=== PATIENT | male | born 1970 | race Caucasian/White ===

== ENCOUNTER 2018-01-15 01:51 | Observation (INO) ==
--- NOTE | 2018-01-15 03:42 | ED ---
HPI General Chief Complaint: Psychiatric Symptoms Stated Complaint: [facility] Transport/ Psych Eval Time Seen by Provider: 01/15/18 03:14 Source: patient Mode of arrival: ambulatory Limitations: other (TBI) History of Present Illness HPI Narrative: 47-year-old male presents to the emergency department with medical records records from [facility] for evaluation of medical clearance after Gleason act. Patient has traumatic brain injury and resident of local [facility] became aggressive towards patients and staff and was sent to [facility] for further evaluation and management upon patient's arrival to the facility was identified to need medical clearance and was sent to the emergency room for further evaluation. Patient is able to provide helpful or useful history due to history of traumatic brain injury. complaint: feels depressed Onset (ago): unknown Duration: other (Unknown) Relieving factors: other (unknown) Exacerbating factors: other (unknown) Associated symptoms: denies other symptoms Treatments prior to arrival: none and other (gleason act by [facility]) Details of plan: reportedly aggressive towards other [facility] residence and medical staff Related Data Home Medications Medication Instructions Recorded Confirmed atorvastatin 20 mg PO DAILY 01/15/18 01/15/18 divalproex 500 mg PO TID 01/15/18 01/15/18 docusate sodium [Colace] 100 mg PO DAILY 01/15/18 01/15/18 mirabegron [Myrbetriq] 25 mg PO DAILY 01/15/18 01/15/18 omeprazole 20 mg PO DAILY 01/15/18 01/15/18 polyethylene glycol 3350 17 g PO DAILY 01/15/18 01/15/18 quetiapine 300 mg PO BID 01/15/18 01/15/18 tamsulosin 0.4 mg PO DAILY 01/15/18 01/15/18 ziprasidone HCl [Geodon] 80 mg PO QPM 01/15/18 01/15/18 Allergies Allergy/AdvReac Type Severity Reaction Status Date / Time No Known Allergies Allergy Unverified 01/15/18 02:12 Review of Systems ROS Unobtainable ROS Unobtainable: unobtainable due to mental condition PMFSH Medical History Medical History Mood disorder (Acute) Schizophrenia (Acute) Seizure (Acute) Social History Social History Substance History: No History of Abuse Smoking Status: Never smoker How Often Do You Have a Drink Containing Alcohol: Never Recent Out of Country Travel within the Last 8 Weeks: No Immunization History Tetanus Immunization: Unsure Exam Narrative Exam Narrative: GENERAL: Well-nourished, well-developed patient. SKIN: Focused skin assessment warm/dry. HEAD: Normocephalic. EYES: No scleral icterus. No injection or drainage. NECK: Supple, trachea midline. No JVD or lymphadenopathy. CARDIOVASCULAR: Regular rate and rhythm without murmurs, gallops, or rubs. RESPIRATORY: Breath sounds equal bilaterally. No accessory muscle use. GASTROINTESTINAL: Abdomen soft, non-tender, nondistended. MUSCULOSKELETAL: No cyanosis, or edema. BACK: Nontender without obvious deformity. No CVA tenderness. Course Initial Documented Vital Signs Temperature 98.6 F 01/15/18 02:12 Pulse Rate 98 H 01/15/18 02:12 Respiratory Rate 16 01/15/18 02:12 Blood Pressure 126/78 01/15/18 02:12 Pulse Oximetry 98 01/15/18 02:12 Last Documented Vital Signs Temperature 98.6 F 01/15/18 02:12 Pulse Rate 89 01/15/18 05:00 Respiratory Rate 18 01/15/18 02:14 Blood Pressure 126/78 01/15/18 05:00 Pulse Oximetry 98 01/15/18 05:00 Medical Decision Making MDM Narrative Medical decision making narrative: Patient with history of mood disorder or schizophrenia presents to the emergency department from [facility] for medical clearance as she has been Gleason acted due to reportedly aggressive behavior towards his previous [facility] co-residents and staff. At 5:43 AM patient's valproic acid level reported as 122; Depakote toxicity; patient also noted to have elevated TSH and serum ammonia level; no history of cirrhosis or thyroid dysfunction per medical history or her medications, patient given one-time dose of lactulose and will require further thyroid evaluation; call placed to [facility] service for OBS admission Medical Screen Exam Complete: Yes Emergency Medical Condition: Yes Differential Diagnosis Differential Diagnosis: Depression suicidal ideation thyroid dysfunction electrode disturbance metabolic encephalopathy Lab Data Result diagrams: 01/15/18 03:36 01/15/18 03:36 Lab Results 08/26/18 08/26/18 08/26/18 Range/Units 03:36 03:36 03:36 WBC 5.4 (4.0-11.0) th/mm3 RBC 4.40 L (4.50-5.90) mil/mm3 Hgb 14.7 (13.0-17.0) gm/dL Hct 42.8 (39.0-51.0) % MCV 97.3 (80.0-100.0) fL MCH 33.4 (27.0-34.0) pg MCHC 34.3 (32.0-36.0) % RDW 14.1 (11.6-17.2) % Plt Count 139 L (150-450) th/mm3 MPV 8.9 (7.0-11.0) fL Neut % (Auto) 49.3 (16.0-70.0) % Lymph % (Auto) 37.7 (9.0-44.0) % [place] % (Auto) 11.6 H (0.0-8.0) % Eos % (Auto) 1.1 (0.0-4.0) % Baso % (Auto) 0.3 (0.0-2.0) % Neut # (Auto) 2.7 (1.8-7.7) th/mm3 Lymph # (Auto) 2.0 (1.0-4.8) th/mm3 [place] # (Auto) 0.6 (0.0-0.9) th/mm3 Eos # (Auto) 0.1 (0.0-0.4) th/mm3 Baso # (Auto) 0.0 (0.0-0.2) th/mm3 WBC Differential . Differential Comment Auto diff final Sodium 144 (136-145) meq/L Potassium 4.1 (3.5-5.1) meq/L Chloride 108 H (98-107) meq/L Carbon Dioxide 23.9 (21.0-32.0) meq/L Anion Gap 12 (5-15) meq/L BUN 19 H (7-18) mg/dL Creatinine 0.80 (0.60-1.30) mg/dL Estimated GFR Greater than 89 (>89) mL/min Random Glucose 74 (74-106) mg/dL Calcium 8.8 (8.5-10.1) mg/dL Total Bilirubin 0.7 (0.2-1.0) mg/dL AST 32 (15-37) U/L ALT 25 (12-78) U/L Alkaline Phosphatase 49 (45-117) U/L Total Protein 7.3 (6.4-8.2) g/dL Albumin 3.4 (3.4-5.0) g/dL TSH 7.150 H (0.358-3.740) uIU/mL Salicylates Less than 1.7 L (2.8-20.0) mg/dL Urine Opiates Screen (Neg) Acetaminophen Less than 2.0 L (10.0-30.0) mcg/mL Ur Barbiturates Screen (Neg) Valproic Acid 122 H* (50-100) mcg/mL Ur Amphetamines Screen (Neg) U Benzodiazepines Scrn (Neg) Urine Cocaine Screen (Neg) U Cannabinoids Screen (Neg) Serum Alcohol Less than 3 (0-5) mg/dL 01/15/18 Range/Units 04:00 WBC (4.0-11.0) th/mm3 RBC (4.50-5.90) mil/mm3 Hgb (13.0-17.0) gm/dL Hct (39.0-51.0) % MCV (80.0-100.0) fL MCH (27.0-34.0) pg MCHC (32.0-36.0) % RDW (11.6-17.2) % Plt Count (150-450) th/mm3 MPV (7.0-11.0) fL Neut % (Auto) (16.0-70.0) % Lymph % (Auto) (9.0-44.0) % [place] % (Auto) (0.0-8.0) % Eos % (Auto) (0.0-4.0) % Baso % (Auto) (0.0-2.0) % Neut # (Auto) (1.8-7.7) th/mm3 Lymph # (Auto) (1.0-4.8) th/mm3 [place] # (Auto) (0.0-0.9) th/mm3 Eos # (Auto) (0.0-0.4) th/mm3 Baso # (Auto) (0.0-0.2) th/mm3 WBC Differential Differential Comment Sodium (136-145) meq/L Potassium (3.5-5.1) meq/L Chloride (98-107) meq/L Carbon Dioxide (21.0-32.0) meq/L Anion Gap (5-15) meq/L BUN (7-18) mg/dL Creatinine (0.60-1.30) mg/dL Estimated GFR (>89) mL/min Random Glucose (74-106) mg/dL Calcium (8.5-10.1) mg/dL Total Bilirubin (0.2-1.0) mg/dL AST (15-37) U/L ALT (12-78) U/L Alkaline Phosphatase (45-117) U/L Total Protein (6.4-8.2) g/dL Albumin (3.4-5.0) g/dL TSH (0.358-3.740) uIU/mL Salicylates (2.8-20.0) mg/dL Urine Opiates Screen Neg (Neg) Acetaminophen (10.0-30.0) mcg/mL Ur Barbiturates Screen Neg (Neg) Valproic Acid (50-100) mcg/mL Ur Amphetamines Screen Neg (Neg) U Benzodiazepines Scrn Neg (Neg) Urine Cocaine Screen Neg (Neg) U Cannabinoids Screen Neg (Neg) Serum Alcohol (0-5) mg/dL Discharge Plan Discharge Disposition Patient Disposition: 30 Still Patient Discharge Condition Condition: Stable Discharge Details Diagnosis: Valproic acid toxicity Physicians Team ED Provider: Joanne Chow Primary Care Provider: Kris Vincent Rxs /Orders / Referrals /Forms Prescriptions: No Action atorvastatin 20 mg Tablet 20 mg PO DAILY RF: 0 quetiapine 300 mg Tablet 300 mg PO BID RF: 0 polyethylene glycol 3350 17 gram Powder In Packet 17 g PO DAILY RF: 0 divalproex 500 mg Tablet,Delayed Release (Dr/Ec) 500 mg PO TID RF: 0 tamsulosin 0.4 mg Capsule,Extended Release 24hr 0.4 mg PO DAILY RF: 0 docusate sodium [Colace] 100 mg Capsule 100 mg PO DAILY RF: 0 omeprazole 20 mg Capsule,Delayed Release(Dr/Ec) 20 mg PO DAILY RF: 0 mirabegron [Myrbetriq] 25 mg Tablet Extended Release 24 Hr 25 mg PO DAILY RF: 0 ziprasidone HCl [Geodon] 80 mg Capsule 80 mg PO QPM RF: 0 Status ED Status: With Doctor
[2018-01-15 04:36] LABS: Baso % (Auto) 0.3 % (0.0-2.0); Eos # (Auto) 0.1 th/mm3 (0.0-0.4); Eos % (Auto) 1.1 % (0.0-4.0); Hematocrit 42.8 % (39.0-51.0); Hemoglobin 14.7 gm/dL (13.0-17.0); Lymph % (Auto) 37.7 % (9.0-44.0); Mean Corpuscular HGB Conc 34.3 % (32.0-36.0); Mean Corpuscular Hemoglobin 33.4 pg (27.0-34.0); Mean Corpuscular Volume 97.3 fL (80.0-100.0); Mean Platelet Volume 8.9 fL (7.0-11.0); Mono # (Auto) 0.6 th/mm3 (0.0-0.9); Mono % (Auto) 11.6 % (0.0-8.0); Neut # (Auto) 2.7 th/mm3 (1.8-7.7); Neut % (Auto) 49.3 % (16.0-70.0); Platelet Count 139 th/mm3 (150-450); Red Cell Distribution Width 14.1 % (11.6-17.2); White Blood Count 5.4 th/mm3 (4.0-11.0)
[2018-01-15 04:44] LABS: Amphetamine Screen,Urine Neg (Neg); Barbiturate Screen,Urine Neg (Neg); Cannabinoid Screen,Urine Neg (Neg); Cocaine Screen,Urine Neg (Neg)
[2018-01-15 04:50] LABS: Opiate Screen,Urine Neg (Neg)
[2018-01-15 05:38] LABS: Sodium 144 meq/L (136-145)
[2018-01-15 05:39] LABS: Alanine Aminotransferase 25 U/L (12-78); Anion Gap 12 meq/L (5-15); Aspartate Aminotransferase 32 U/L (15-37); Blood Urea Nitrogen 19 mg/dL (7-18); Calcium 8.8 mg/dL (8.5-10.1); Carbon Dioxide 23.9 meq/L (21.0-32.0); Chloride 108 meq/L (98-107); Glomerular Filtration Rate Greater Than 89 mL/min (>89); Glucose,Random 74 mg/dL (74-106); Potassium 4.1 meq/L (3.5-5.1)
[2018-01-15 05:40] LABS: Albumin 3.4 g/dL (3.4-5.0); Alkaline Phosphatase 49 U/L (45-117); Total Protein 7.3 g/dL (6.4-8.2)
[2018-01-15 05:42] LABS: Valproic Acid 122 mcg/mL (50-100)
[2018-01-15] MEDS ORDERED: Bisacodyl 10 MG Supp RECTAL PRN (06:01)
[2018-01-15] MEDS ORDERED: Acetaminophen 325 MG Tablet PO PRN (06:01)
[2018-01-15] MEDS ORDERED: Sod Chloride 0.9% Inj 1,000 ML IV.CONT SCH (06:15)
--- NOTE | 2018-01-15 07:38 | P.HP ---
History of Present Illness Service: [facility] Primary Care Physician: Kris Vincent Chief Complaint: Sent here from facility for aggressive behavior History of Present Illness: Patient is a 47-year-old male with history of traumatic brain injury who came from a longterm who was sent here apparently for aggressive behavior. Patient on exam is very cooperative oriented 3. Patient expressed that "I want to speak to a psychiatrist. I do not want to go back where I used to leave , they did not treat me right. When asked why she where he came from he said it is facility is [facility] in [place]. Patient currently denies any headache nausea vomiting. Patient denies any fever chills no urinary symptoms no no headache nausea or vomiting. Since admission no aggressive or bizarre behavior. Case management consulted for placement. Patient states that he ambulates independently. Review of Systems Denies any fever chills headache No nausea no vomiting, no abdominal pain Denies any urinary symptoms Denies hearing any voices PMFSH - History History Provided By: Patient - Medical History Medical History: Medical History (Last Reviewed 01/16/18 @ 07:43 by Chandana Schumacher) Mood disorder Schizophrenia Seizure - Tobacco History Smoking Status: Never smoker - Alcohol History How Often Do You Have a Drink Containing Alcohol: Never - Substance Use History Substance History: No History of Abuse - Travel History Recent Travel Out of the Country Within the Last 8 Weeks: No - Immunization History Tetanus Immunization: Unsure Medications and Allergies Active Medications: Active Medications Acetaminophen (Tylenol) 650 mg PO Q4H PRN PRN Reason: Temp > 100.4 Al Hydroxide/Mg Hydroxide (Milk Of Magnesia Liq) 30 ml PO Q12H PRN PRN Reason: Mild Constipation Bisacodyl (Dulcolax Supp) 10 mg RECTAL DAILY PRN PRN Reason: SEVERE CONSITIPATION Sodium Chloride (Ns Inj) 1,000 mls @ 100 mls/hr IV.CONT .Q10H BLUE Last Admin: 01/15/18 06:16 Dose: 100 mls/hr Lactulose (Lactulose Liq) 30 ml PO DAILY PRN PRN Reason: SEVERE CONSITIPATION Ondansetron HCl (Zofran Inj) 4 mg IV.PUSH Q6H PRN PRN Reason: NAUSEA OR VOMITING Pantoprazole Sodium (Protonix) 20 mg PO DAILY [facility] Quetiapine Fumarate (Seroquel) 300 mg PO BID [facility] Senna/Docusate Sodium (Doreen-Colace) 1 tab PO BID [facility] Sennosides (Senokot) 17.2 mg PO Q12H PRN PRN Reason: Moderate Constipation Tamsulosin HCl (Flomax) 0.4 mg PO DAILY [facility] Tolterodine Tartrate (Detrol La) 2 mg PO DAILY [facility] Ziprasidone (Geodon) 80 mg PO QPM [facility] Allergies Allergy/AdvReac Type Severity Reaction Status Date / Time No Known Allergies Allergy Unverified 01/15/18 02:12 Home Medications Medication Instructions Recorded Confirmed Type atorvastatin 20 mg PO DAILY 01/15/18 01/15/18 History divalproex 500 mg PO TID 01/15/18 01/15/18 History docusate sodium [Colace] 100 mg PO DAILY 01/15/18 01/15/18 History mirabegron [Myrbetriq] 25 mg PO DAILY 01/15/18 01/15/18 History omeprazole 20 mg PO DAILY 01/15/18 01/15/18 History polyethylene glycol 3350 17 g PO DAILY 01/15/18 01/15/18 History quetiapine 300 mg PO BID 01/15/18 01/15/18 History tamsulosin 0.4 mg PO DAILY 01/15/18 01/15/18 History ziprasidone HCl [Geodon] 80 mg PO QPM 01/15/18 01/15/18 History Exam Vital signs: Vital Signs 01/15/18 02:12 01/15/18 02:14 01/15/18 03:14 Temperature 98.6 F Pulse Rate 98 H 88 Respiratory Rate 16 18 Blood Pressure 126/78 126/76 Pulse Oximetry 98 98 01/15/18 04:00 01/15/18 05:00 01/15/18 06:00 Temperature Pulse Rate 89 82 Respiratory Rate 19 Blood Pressure 126/78 126/72 Pulse Oximetry 98 98 Intake & Output 01/14/18 01/15/18 01/15/18 18:59 06:59 18:59 Weight 90.718 kg Narrative: Patient is awake alert oriented to person place and year pleasant and cooperative speech clear Childlike Blood pressure 122/70 heart rate of 92 sinus temperature afebrile HEENT exam anicteric sclerae pink palpebral conjunctivae Moist oral mucosa Neck supple no nuchal rigidity Chest lungs bilateral breath sounds equal no rales no wheezes heart regular rhythm Abdomen is soft good bowel sounds Extremities no edema Moves all extremities spontaneously Results - Labs CBC & Chem 7: 01/16/18 06:00 01/16/18 06:00 Labs: Laboratory Results - last 24 hr 01/15/18 01/15/18 01/15/18 03:36 03:36 03:36 WBC 5.4 RBC 4.40 L Hgb 14.7 Hct 42.8 MCV 97.3 MCH 33.4 MCHC 34.3 RDW 14.1 Plt Count 139 L MPV 8.9 Neut % (Auto) 49.3 Lymph % (Auto) 37.7 [place] % (Auto) 11.6 H Eos % (Auto) 1.1 Baso % (Auto) 0.3 Neut # (Auto) 2.7 Lymph # (Auto) 2.0 [place] # (Auto) 0.6 Eos # (Auto) 0.1 Baso # (Auto) 0.0 WBC Differential . Differential Comment Auto diff final Sodium 144 Potassium 4.1 Chloride 108 H Carbon Dioxide 23.9 Anion Gap 12 BUN 19 H Creatinine 0.80 Estimated GFR Greater than 89 Random Glucose 74 Calcium 8.8 Total Bilirubin 0.7 AST 32 ALT 25 Alkaline Phosphatase 49 Total Protein 7.3 Albumin 3.4 TSH 7.150 H Salicylates Less than 1.7 L Urine Opiates Screen Acetaminophen Less than 2.0 L Ur Barbiturates Screen Valproic Acid 122 H* Ur Amphetamines Screen U Benzodiazepines Scrn Urine Cocaine Screen U Cannabinoids Screen Serum Alcohol Less than 3 01/15/18 04:00 WBC RBC Hgb Hct MCV MCH MCHC RDW Plt Count MPV Neut % (Auto) Lymph % (Auto) [place] % (Auto) Eos % (Auto) Baso % (Auto) Neut # (Auto) Lymph # (Auto) [place] # (Auto) Eos # (Auto) Baso # (Auto) WBC Differential Differential Comment Sodium Potassium Chloride Carbon Dioxide Anion Gap BUN Creatinine Estimated GFR Random Glucose Calcium Total Bilirubin AST ALT Alkaline Phosphatase Total Protein Albumin TSH Salicylates Urine Opiates Screen Neg Acetaminophen Ur Barbiturates Screen Neg Valproic Acid Ur Amphetamines Screen Neg U Benzodiazepines Scrn Neg Urine Cocaine Screen Neg U Cannabinoids Screen Neg Serum Alcohol Caprini VTE Risk Assessment Caprini VTE Risk Assessment: No/Low Risk (score <= 1) Caprini Risk Assessment Model: Point Value = 1 Point Value = 2 Point Value = 3 Point Value = 5 Age 41-60 Minor surgery BMI > 25 kg/m2 Swollen legs Varicose veins or History of unexplained or recurrent spontaneous Oral contraceptives or hormone replacement Sepsis (< 1 month) Serious lung disease, including pneumonia (< 1 month) Abnormal pulmonary function Acute myocardial infarction Congestive heart failure (< 1 month) History of inflammatory bowel disease Medical patient at bed rest Age 61-74 Arthroscopic surgery Major open surgery (> 45 min) Laparoscopic surgery (> 45 min) Malignancy Confined to bed (> 72 hours) Immobilizing plaster cast Central venous access Age >= 75 History of VTE Family history of VTE Factor V Leiden Prothrombin [id number] Lupus anticoagulant Anticardiolipin antibodies Elevated serum homocysteine Heparin-induced thrombocytopenia Other congenital or acquired thrombophilia Stroke (< 1 month) Elective arthroplasty Hip, pelvis, or leg fracture Acute spinal cord injury (< 1 month) Prophylaxis Regimen: Total Risk Factor Score Risk Level Prophylaxis Regimen 0-1 Low Early ambulation 2 Moderate Order ONE of the following: *Sequential Compression Device (SCD) *Heparin 5000 units SQ BID 3-4 Higher Order ONE of the following medications: *Heparin 5000 units SQ TID *Enoxaparin/Lovenox 40 mg SQ daily (WT < 150 kg, CrCl > 30 mL/min) *Enoxaparin/Lovenox 30 mg SQ daily (WT < 150 kg, CrCl > 10-29 mL/min) *Enoxaparin/Lovenox 30 mg SQ BID (WT < 150 kg, CrCl > 30 mL/min) AND/OR *Sequential Compression Device (SCD) 5 or more Highest Order ONE of the following medications: *Heparin 5000 units SQ TID (Preferred with Epidurals) *Enoxaparin/Lovenox 40 mg SQ daily (WT < 150 kg, CrCl > 30 mL/min) *Enoxaparin/Lovenox 30 mg SQ daily (WT < 150 kg, CrCl > 10-29 mL/min) *Enoxaparin/Lovenox 30 mg SQ BID (WT < 150 kg, CrCl > 30 mL/min) AND *Sequential Compression Device (SCD) Assessment and Plan - Plan 47-year-old male with history of traumatic brain injury, mood disorder questionable seizure disorder sent here for aggressive behavior on and labs showed elevated valproic acid level. Reviewed levels from outpatient. Depakote toxicity. Patient is awake alert. Cooperative and interactive. Not confused no nausea no vomiting on telemetry is in sinus rhythm. Reviewed levels on January 02 he had a Depakote level that was elevated at 144. Repeat Depakote level on admission was 122. Will continue to hold Depakote- As an outpatient dose of 500 mg 3 times a day on record Psychiatry service consulted I am not quite sure if Depakote is being given for seizure disorder with history of traumatic brain injury or as a mood stabilizer will get hydrate with 1 L normal saline. x 1 L Recheck levels in a.m. PT eval and treat. Out of bed to chair for all meals. continue home meds omeprazole 20 mg daily atorvastatin 20 mg at bedtime and MiraLAX 17 g daily. Flomax Case management consult. -Per patient he does not want to go back to the same facility.
[2018-01-15] MEDS: Tolterodine Tartrate LA 2 MG Capsule PO SCH (09:13)
[2018-01-15] MEDS: Senna/Docusate Sodium 8.6/50 MG Tablet PO SCH (09:13)
[2018-01-15] MEDS: Pantoprazole Sodium 20 MG DR Tablet PO SCH (09:13)
--- NOTE | 2018-01-15 13:55 | ECG ---
Date Performed: 01/15/2018 Time Performed: 03:47:10 PTAGE: 47 years EKG: LikelySinus rhythm with heavy artifact Repeat EKG recommended as the baseline looks like flutter with the exception of Leads V4 through V6 which appear to be sinus rhythm NORMAL ECG PREVIOUS TRACING : 12/20/2017 12.45 Compared to previous tracing, likely no significant change DOCTOR: Maxwell Carrizales Interpretating Date/Time 01/15/2018 13:55:14
[2018-01-16] MEDS: Senna/Docusate Sodium 8.6/50 MG Tablet PO SCH ×2 (00:37→09:49)
[2018-01-16 07:04] LABS: Baso % (Auto) 0.3 % (0.0-2.0); Eos # (Auto) 0.1 th/mm3 (0.0-0.4); Eos % (Auto) 1.6 % (0.0-4.0); Hematocrit 41.9 % (39.0-51.0); Hemoglobin 14.5 gm/dL (13.0-17.0); Lymph # (Auto) 1.4 th/mm3 (1.0-4.8); Lymph % (Auto) 35.5 % (9.0-44.0); Mean Corpuscular HGB Conc 34.7 % (32.0-36.0); Mean Corpuscular Hemoglobin 33.9 pg (27.0-34.0); Mean Corpuscular Volume 97.6 fL (80.0-100.0); Mean Platelet Volume 8.7 fL (7.0-11.0); Mono # (Auto) 0.4 th/mm3 (0.0-0.9); Mono % (Auto) 10.7 % (0.0-8.0); Neut # (Auto) 2.1 th/mm3 (1.8-7.7); Neut % (Auto) 51.9 % (16.0-70.0); Platelet Count 121 th/mm3 (150-450); Red Blood Count 4.29 mil/mm3 (4.50-5.90); Red Cell Distribution Width 14.3 % (11.6-17.2)
[2018-01-16 07:31] LABS: Alanine Aminotransferase 23 U/L (12-78); Albumin 3.1 g/dL (3.4-5.0); Anion Gap 11 meq/L (5-15); Aspartate Aminotransferase 26 U/L (15-37); Blood Urea Nitrogen 14 mg/dL (7-18); Calcium 8.7 mg/dL (8.5-10.1); Carbon Dioxide 25.5 meq/L (21.0-32.0); Chloride 108 meq/L (98-107); Glomerular Filtration Rate Greater Than 89 mL/min (>89); Glucose,Random 74 mg/dL (74-106); Potassium 4.1 meq/L (3.5-5.1); Sodium 144 meq/L (136-145)
[2018-01-16 07:32] LABS: Alkaline Phosphatase 45 U/L (45-117); Total Protein 6.7 g/dL (6.4-8.2); Valproic Acid 38 mcg/mL (50-100)
[2018-01-16] MEDS: Pantoprazole Sodium 20 MG DR Tablet PO SCH (09:49)
[2018-01-16] MEDS: Tolterodine Tartrate LA 2 MG Capsule PO SCH (09:49)
--- NOTE | 2018-01-16 11:33 | P.PNIM ---
Subjective Interval history: Patient is a 47-year-old male with history of traumatic brain injury who came from a senior living who was sent here apparently for aggressive behavior. Patient on exam is very cooperative oriented 3. Patient expressed that "I want to speak to a psychiatrist. I do not want to go back where I used to leave , they did not treat me right. When asked why she where he came from he said it is facility is [facility] [place]. Patient currently denies any headache nausea vomiting. Patient denies any fever chills no urinary symptoms no no headache nausea or vomiting. Since admission no aggressive or bizarre behavior. Case management consulted for placement. Patient states that he ambulates independently. 8-27 LEVELS ARE NORMAL HAS HYPOTHYROIDISM WILL START ON SYNTHROID CAN BE DCED TO INPT PSYCHIATRY WILL NEED PLACEMENT DW RN AND PT AND CM Physical Exam Vital signs: Vital Signs 01/15/18 15:39 01/16/18 00:00 01/16/18 04:00 Temperature 97.9 F 97.8 F 97.6 F Pulse Rate 85 80 80 Respiratory Rate 18 18 18 Blood Pressure 122/78 135/78 129/74 Pulse Oximetry 98 96 95 01/16/18 07:38 01/16/18 08:00 Temperature 97.8 F Pulse Rate 79 81 Respiratory Rate 18 Blood Pressure 119/80 Pulse Oximetry 93 L Intake & Output 01/15/18 01/16/18 01/16/18 18:59 06:59 18:59 Intake Total 1110 / 1110 480 / 480 Output Total 400 / 400 Balance 1110 / 1110 80 / 80 Intake: IV 1000 / 1000 NS Inj 1,000 ML @ 100 mls/hr IV 1000 / 1000 .CONT .Q10H BLUE Rx#:[id number] Oral 110 / 110 480 / 480 Output: Urine 400 / 400 Other: # Voids 1 2 2 # Incontinent Voids 1 # Bowel Movements 0 Narrative: GENERAL: Alert and 2 talkative and cooperative childlike in nature SKIN: Warm and dry. HEAD: Atraumatic. Normocephalic. EYES: Pupils equal and round. No scleral icterus. No injection or drainage. EOMI ENT: No nasal bleeding or discharge. Mucous membranes pink and moist. Tongue is midline NECK: Trachea midline. No JVD. Supple CARDIOVASCULAR: Regular rate and rhythm. S1-S2 no S3 or S4 RESPIRATORY: No accessory muscle use. Clear to auscultation. Breath sounds equal bilaterally. GASTROINTESTINAL: Abdomen soft, non-tender, nondistended. Hepatic and splenic margins not palpable. MUSCULOSKELETAL: Extremities without clubbing, cyanosis, or edema. No obvious deformities. NEUROLOGICAL: Awake and alert. No obvious cranial nerve deficits. Motor grossly within normal limits. Five out of 5 muscle strength in the arms and legs. Normal speech. PSYCHIATRIC: INAppropriate mood and affect; insight and judgment ABnormal. Results - Labs CBC & Chem 7: 01/16/18 06:00 01/16/18 06:00 Laboratory Results - last 24 hr 01/16/18 01/16/18 06:00 06:00 WBC 4.0 RBC 4.29 L Hgb 14.5 Hct 41.9 MCV 97.6 MCH 33.9 MCHC 34.7 RDW 14.3 Plt Count 121 L MPV 8.7 Neut % (Auto) 51.9 Lymph % (Auto) 35.5 [place] % (Auto) 10.7 H Eos % (Auto) 1.6 Baso % (Auto) 0.3 Neut # (Auto) 2.1 Lymph # (Auto) 1.4 [place] # (Auto) 0.4 Eos # (Auto) 0.1 Baso # (Auto) 0.0 WBC Differential . Differential Comment Auto diff final Sodium 144 Potassium 4.1 Chloride 108 H Carbon Dioxide 25.5 Anion Gap 11 BUN 14 Creatinine 0.62 Estimated GFR Greater than 89 Random Glucose 74 Calcium 8.7 Total Bilirubin 0.8 AST 26 ALT 23 Alkaline Phosphatase 45 Total Protein 6.7 D Albumin 3.1 L Valproic Acid 38 L - Procedures NONE Assessment and Plan - Plan 47-year-old male with history of traumatic brain injury, mood disorder questionable seizure disorder sent here for aggressive behavior on and labs showed elevated valproic acid level. Reviewed levels from outpatient. LEVELS NORMAL Depakote toxicity. Patient is awake alert. Cooperative and interactive. Not confused no nausea no vomiting on telemetry is in sinus rhythm. Reviewed levels on January 02 he had a Depakote level that was elevated at 144. Repeat Depakote level on admission was 122. Will continue to hold Depakote- As an outpatient dose of 500 mg 3 times a day on record Psychiatry service consulted I am not quite sure if Depakote is being given for seizure disorder with history of traumatic brain injury or as a mood stabilizer will get hydrate with 1 L normal saline. x 1 L LEVELS ARE NOW LOW DC TO INPT PSYCHIATRY TODAY PT eval and treat. Out of bed to chair for all meals. HYPOTHYROIDISM START SYNTHROID continue home meds omeprazole 20 mg daily atorvastatin 20 mg at bedtime and MiraLAX 17 g daily. Flomax Case management consult. -Per patient he does not want to go back to the same facility. Code Status: FULL CODE Discussed Condition With: RN AND PT AND ELECTRICAL INSTALLATION INSPECTOR Discharge Planning: DC TO INPT PSYCHIATRY
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
[2018-01-16] MEDS ORDERED: Polyethylene Glycol 3350 17 GM Packet PO SCH (12:00)
[2018-01-16] MEDS ORDERED: Docusate Sodium 100 MG Capsule PO SCH (13:00)
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
== END 2018-01-16 17:50 ==
LOC: NEPC 01:51 → NEDA 01:51 → NEDH 12:42 → NEPFCDU 14:53
PROVIDERS: ADMIT Hospitalist; ATTEND Hospitalist
DX: K21.9 Gastro-esophageal reflux disease without esophagitis; R45.1 Restlessness and agitation; F25.9 Schizoaffective disorder, unspecified; F39 Unspecified mood [affective] disorder; F63.81 Intermittent explosive disorder; T42.6X5A Adverse effect of other antiepileptic and sedative-hypnotic drugs, initial encounter; E03.9 Hypothyroidism, unspecified; N40.0 Benign prostatic hyperplasia without lower urinary tract symptoms; F32.9 Major depressive disorder, single episode, unspecified; E78.5 Hyperlipidemia, unspecified; Z79.899 Other long term (current) drug therapy; R56.9 Unspecified convulsions; Z87.820 Personal history of traumatic brain injury

== ENCOUNTER 2018-01-16 16:58 | Inpatient (IN) ==
[2018-01-16] MEDS ORDERED: Aluminum/Magnesium/Simethacone Susp 30 ML UDC PO PRN (19:38)
[2018-01-16] MEDS ORDERED: Acetaminophen 325 MG Tablet PO PRN (19:38)
[2018-01-16] MEDS ORDERED: Haloperidol Inj 5 MG/ML Ampul ONE (20:43)
[2018-01-16] MEDS ORDERED: Haloperidol Inj 5 MG/ML Ampul IM ONE (20:50)
[2018-01-16] MEDS: Divalproex 500 MG DR Tablet PO SCH (22:47)
[2018-01-17] MEDS ORDERED: Haloperidol Inj 5 MG/ML Ampul IM SCH (05:01)
[2018-01-17] MEDS ORDERED: Haloperidol Inj 5 MG/ML Ampul ONE (05:02)
[2018-01-17] MEDS: Tolterodine Tartrate LA 2 MG Capsule PO SCH (09:09)
[2018-01-17] MEDS: Polyethylene Glycol 3350 17 GM Packet PO SCH (09:09)
[2018-01-17] MEDS: Docusate Sodium 100 MG Capsule PO SCH (09:09)
[2018-01-17] MEDS: Divalproex 500 MG DR Tablet PO SCH ×3 (09:09→17:33)
[2018-01-17] MEDS: Pantoprazole Sodium 20 MG DR Tablet PO SCH (09:09)
--- NOTE | 2018-01-17 11:42 | P.CONPSY ---
Provisional Diagnosis Admission Date: January 16, 2018 18:22 [place] I.: 1. Major neurocognitive disorder secondary to traumatic brain injury with behavioral disturbance [place] II.: Deferred History of Present Illness Service: Psychiatry Consult date: 01/17/18 Requesting Physician: Surinder Mcgarry Reason for Consult: Second opinion for involuntary psychiatric hospitalization Primary Care Provider: Kris Vincent Family Provider: Kris Vincent History of Present Illness: Mr. Purdy is a 47-year-old male with a history of neurocognitive disorder secondary to traumatic brain injury who presents in transfer from the medical floor under a Gleason act. Patient evaluated by Dr. Mcgarry. Reviewing the electronic medical record, I note that the patient was most recently psychiatrically admitted here under Dr. Thompson in 2008. Patient seen and examined with nurse. Chart reviewed. Case discussed with nursing staff. On my examination today, the patient is presently calm. He was quite agitated overnight and required Haldol, Ativan and Benadryl ETO 2. Examination is quite limited because of the patient's cognitive impairment. He presents as extremely childlike. He denies any audiovisual hallucinations. He denies any suicidal or homicidal ideation. He does report a history of psychiatric diagnosis but cannot recall whether he is under the care of a psychiatrist or when the last time he was psychiatrically admitted. He denies a history of suicide attempts. He is unable to tell me about any family history of mental illness. He denies any abuse of drugs or alcohol. He is unable to provide me anything in the way of social history. Remainder of the psychiatric ROS is negative. No acute physical complaints. Review of Systems unobtainable due to mental status PMFSH - History History Provided By: Patient - Medical History Medical History: Medical History (Last Reviewed 01/16/18 @ 07:43 by Chandana Schumacher) Mood disorder Schizophrenia Seizure - Tobacco History Second Hand Smoke Exposure: Yes Smoking Status: Never smoker - Alcohol History How Often Do You Have a Drink Containing Alcohol: Never - Substance Use History Substance History: No History of Abuse Medications and Allergies Active Medications: Active Medications Acetaminophen (Tylenol) 650 mg PO Q4H PRN PRN Reason: Pain 1-5 or Temp >101F Al Hydrox/Mg Hydrox/Simethicone (Mag-Al Plus Susp Liq) 30 ml PO Q6H PRN PRN Reason: DYSPEPSIA Al Hydroxide/Mg Hydroxide (Milk Of Sandra Rodriges) 30 ml PO Q12H PRN PRN Reason: Mild Constipation Atorvastatin Calcium (Lipitor) 20 mg PO DAILY [facility] Last Admin: 01/17/18 09:00 Dose: 20 mg Diphenhydramine HCl (Benadryl) 50 mg PO HS PRN PRN Reason: INSOMNIA Divalproex Sodium (Depakote Dr) 500 mg PO TID [facility] Last Admin: 01/17/18 09:09 Dose: 500 mg Docusate Sodium (Colace) 100 mg PO DAILY [facility] Last Admin: 01/17/18 09:09 Dose: 100 mg Levothyroxine Sodium (Synthroid) 25 mcg PO DAILY@0600 [facility] Last Admin: 01/17/18 05:13 Dose: 25 mcg Nicotine (Habitrol 21 Mg Patch.24 Hr) 1 patch T-DERMAL DAILY PRN PRN Reason: Nicotine craving Pantoprazole Sodium (Protonix) 20 mg PO DAILY [facility] Last Admin: 01/17/18 09:09 Dose: 20 mg Patch Removal (Remove Old Patch) 1 each T-DERMAL HS PRN PRN Reason: NICOTINE CRAVING Polyethylene Glycol (Miralax) 17 gm PO DAILY [facility] Last Admin: 01/17/18 09:09 Dose: 17 gm Quetiapine Fumarate (Seroquel) 300 mg PO BID [facility] Last Admin: 01/17/18 09:31 Dose: 300 mg Tamsulosin HCl (Flomax) 0.4 mg PO DAILY [facility] Last Admin: 01/17/18 09:09 Dose: 0.4 mg Tolterodine Tartrate (Detrol La) 2 mg PO DAILY [facility] Last Admin: 01/17/18 09:09 Dose: 2 mg Ziprasidone (Geodon) 80 mg PO [facility] Allergies Allergy/AdvReac Type Severity Reaction Status Date / Time No Known Allergies Allergy Unverified 01/15/18 02:12 Home Medications Medication Instructions Recorded Confirmed Type atorvastatin 20 mg PO DAILY 01/15/18 01/15/18 History divalproex 500 mg PO TID 01/15/18 01/15/18 History docusate sodium [Colace] 100 mg PO DAILY 01/15/18 01/15/18 History mirabegron [Myrbetriq] 25 mg PO DAILY 01/15/18 01/15/18 History omeprazole 20 mg PO DAILY 01/15/18 01/15/18 History polyethylene glycol 3350 17 g PO DAILY 01/15/18 01/15/18 History quetiapine 300 mg PO BID 01/15/18 01/15/18 History tamsulosin 0.4 mg PO DAILY 01/15/18 01/15/18 History ziprasidone HCl [Geodon] 80 mg PO QPM 01/15/18 01/15/18 History Exam Vital signs: Vital Signs 01/16/18 18:37 01/16/18 20:00 Temperature 98.6 F Respiratory Rate 20 16 Blood Pressure 134/87 Pulse Oximetry 95 Intake & Output 01/16/18 01/17/18 01/17/18 18:59 06:59 18:59 Weight 81.9 kg Other: Weight On Admission 81.9 kg Narrative: Physical exam completed by primary team on medical floor. On my examination today, patient appears to be in no acute physical distress. No motor abnormalities noted. Labs and vital signs reviewed: Laboratory Tests 01/14/18 01/15/18 01/15/18 07:15 03:36 04:00 WBC Hgb Plt Count Sodium Potassium Chloride Carbon Dioxide BUN Creatinine AST ALT Alkaline Phosphatase Ammonia 59 H TSH 7.150 H Urine Opiates Screen Neg Ur Barbiturates Screen Neg Valproic Acid Ur Amphetamines Screen Neg U Benzodiazepines Scrn Neg Urine Cocaine Screen Neg U Cannabinoids Screen Neg Serum Alcohol Less than 3 01/16/18 01/16/18 06:00 06:00 WBC 4.0 Hgb 14.5 Plt Count 121 L Sodium 144 Potassium 4.1 Chloride 108 H Carbon Dioxide 25.5 BUN 14 Creatinine 0.62 AST 26 ALT 23 Alkaline Phosphatase 45 Ammonia TSH Urine Opiates Screen Ur Barbiturates Screen Valproic Acid 38 L Ur Amphetamines Screen U Benzodiazepines Scrn Urine Cocaine Screen U Cannabinoids Screen Serum Alcohol Depakote level on presentation here was 144. Mental Status Examination Appearance: Disheveled Consciousness: Alert Orientation: Person Motor Activity: Other (No motor abnormalities noted) Speech: Unremarkable Language: Other (Limited language skills) Fund of Knowledge: Inadequate Attention and Concentration: Inadequate Memory: Impaired Mood: Other (Calm) Affect: Other (Childlike) Thought Process & Associations: Other ([place]) Thought Content: Other (Poverty of thought) Hallucination Type: None Delusion Type: None Suicidal Ideation: No Suicidal Plan: No Suicidal Intention: No Homicidal Ideation: No Homicidal Plan: No Homicidal Intention: No Insight: Poor Judgment: Poor Assessment and Plan - Assessment (1) Major neurocognitive disorder, due to another medical condition, with behavioral disturbance, mild Code(s): F02.81 - Dementia in other diseases classified elsewhere with behavioral disturbance Status: Acute (2) TBI (traumatic brain injury) Code(s): S06.9X9A - Unspecified intracranial injury with loss of consciousness of unspecified duration, initial encounter Status: Chronic - Plan Plan: Given the circumstances of the patient's presentation here, his behavior since arrival on the unit, and his presentation on my examination today, I concur with Dr. Mcgarry that the patient meets criteria for involuntary psychiatric hospitalization under the Gleason act. I have completed the second opinion paperwork. Continue current psychotropics as ordered. Etiology of elevated Depakote level on presentation here unclear. Given the patient's weight, Depakote dose of 500 mg 3 times daily would not be expected to result in this elevated value. A repeat Depakote level has been ordered by the hospitalist aviation consultant. Follow-up laboratories ordered for this morning. Continue other medications and care as ordered. Justification for Continued Inpatient Stay: Risk for decompensation in less restrictive setting Request Healthcare Surrogate/Guardian Advocate?: Yes
[2018-01-17] MEDS ORDERED: Chlorpromazine Inj 50 MG/2 ML Ampule IM STA (13:44)
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
--- NOTE | 2018-01-17 13:53 | P.CON ---
History of Present Illness Service: Hospitalist Consult date: 01/17/18 Reason for Consult: Medical management Primary Care Provider: Kris Vincent Family Provider: Kris Vincent History of Present Illness: This is a 47-year-old male with past medical history significant for traumatic brain injury, mental retardation, schizoaffective disorder, intermittent explosive disorder, seizure disorder and BPH who was recently admitted to [facility] with aggression and Depakote toxicity. Patient's Depakote was held and his levels dropped from 144-38. He was found to be hypothyroid and started on levothyroxine. Patient was seen in consultation by psychiatry and has since been admitted to inpatient psychiatric unit and hospitalist services have been consulted to assist with medical management. Patient has since been resumed on Depakote. Patient is seen and examined. He is in the day room having just completed lunch. He denies any acute medical complaints. He states he wants to go back to [place] which according to the nurse who is in attendance states that is a trigger for him that his behavior is about to escalate. Patient is compliant with physical examination. [facility] - History History Provided By: Patient - Medical History Medical History: Medical History (Last Reviewed 01/16/18 @ 07:43 by Chandana Schumacher) Mood disorder Schizophrenia Seizure - Tobacco History Second Hand Smoke Exposure: Yes Smoking Status: Never smoker - Alcohol History How Often Do You Have a Drink Containing Alcohol: Never - Substance Use History Substance History: No History of Abuse Medications and Allergies Active Medications: Active Medications Acetaminophen (Tylenol) 650 mg PO Q4H PRN PRN Reason: Pain 1-5 or Temp >101F Al Hydrox/Mg Hydrox/Simethicone (Mag-Al Plus Susp Liq) 30 ml PO Q6H PRN PRN Reason: DYSPEPSIA Al Hydroxide/Mg Hydroxide (Milk Of Magnesia Liq) 30 ml PO Q12H PRN PRN Reason: Mild Constipation Atorvastatin Calcium (Lipitor) 20 mg PO DAILY [facility] Last Admin: 01/17/18 09:00 Dose: 20 mg Diphenhydramine HCl (Benadryl) 50 mg PO HS PRN PRN Reason: INSOMNIA Divalproex Sodium (Depakote Dr) 500 mg PO TID [facility] Last Admin: 01/17/18 13:05 Dose: 500 mg Docusate Sodium (Colace) 100 mg PO DAILY [facility] Last Admin: 01/17/18 09:09 Dose: 100 mg Levothyroxine Sodium (Synthroid) 25 mcg PO DAILY@0600 [facility] Last Admin: 01/17/18 05:13 Dose: 25 mcg Nicotine (Habitrol 21 Mg Patch.24 Hr) 1 patch T-DERMAL DAILY PRN PRN Reason: Nicotine craving Pantoprazole Sodium (Protonix) 20 mg PO DAILY [facility] Last Admin: 01/17/18 09:09 Dose: 20 mg Patch Removal (Remove Old Patch) 1 each T-DERMAL HS PRN PRN Reason: NICOTINE CRAVING Polyethylene Glycol (Miralax) 17 gm PO DAILY [facility] Last Admin: 01/17/18 09:09 Dose: 17 gm Quetiapine Fumarate (Seroquel) 300 mg PO BID [facility] Last Admin: 01/17/18 09:31 Dose: 300 mg Tamsulosin HCl (Flomax) 0.4 mg PO DAILY [facility] Last Admin: 01/17/18 09:09 Dose: 0.4 mg Tolterodine Tartrate (Detrol La) 2 mg PO DAILY [facility] Last Admin: 01/17/18 09:09 Dose: 2 mg Ziprasidone (Geodon) 80 mg PO [facility] Allergies Allergy/AdvReac Type Severity Reaction Status Date / Time No Known Allergies Allergy Unverified 01/15/18 02:12 Home Medications Medication Instructions Recorded Confirmed Type atorvastatin 20 mg PO DAILY 01/15/18 01/15/18 History divalproex 500 mg PO TID 01/15/18 01/15/18 History docusate sodium [Colace] 100 mg PO DAILY 01/15/18 01/15/18 History mirabegron [Myrbetriq] 25 mg PO DAILY 01/15/18 01/15/18 History omeprazole 20 mg PO DAILY 01/15/18 01/15/18 History polyethylene glycol 3350 17 g PO DAILY 01/15/18 01/15/18 History quetiapine 300 mg PO BID 01/15/18 01/15/18 History tamsulosin 0.4 mg PO DAILY 01/15/18 01/15/18 History ziprasidone HCl [Geodon] 80 mg PO QPM 01/15/18 01/15/18 History Physical Exam Vital signs: Vital Signs 01/16/18 18:37 01/16/18 20:00 Temperature 98.6 F Respiratory Rate 20 16 Blood Pressure 134/87 Pulse Oximetry 95 Intake & Output 01/16/18 01/17/18 01/17/18 18:59 06:59 18:59 Weight 81.9 kg Other: Weight On Admission 81.9 kg Assessment and Plan - Plan 47-year-old male with past medical history significant for traumatic brain injury, mental retardation, schizoaffective disorder, intermittent explosive disorder, seizure disorder and BPH who was recently admitted to [facility] with aggression and Depakote toxicity. Schizoaffective disorder Intermittent explosive disorder Aggressive behavior -Management per psychiatric team History of TBI Mental retardation Seizure disorder -Patient resumed on Depakote per psychiatric team -Seizure precautions -Monitor for any seizure activity -PT/OT eval/tx Depakote toxicity, resolved Questionable if patient receives Depakote for seizure disorder secondary to TBI or as mood stabilizer last depakote level 38 01/16/18 -Resumed on Depakote per psychiatric team -recommend repeat Depakote level in next 2-3 days Hyperammonemia, suspect secondary to valproic acid Patient is awake and alert -Ammonia level trending down but still elevated at 59 -will give Lactulose 30ml BID x 2-3 days Hypothyroidism, new diagnosis -Patient started on levothyroxine 25 mcg daily, continue. Dyslipidemia -Continue patient on atorvastatin 20 mg daily GERD -PPI BPH -continue on Flomax Thank you very kindly for this consultation. Patient appears stable from hospitalist standpoint. [facility] will sign off. Please reconsult if needed. Discussed Condition With: patient, nursing staff
[2018-01-18] MEDS: Tolterodine Tartrate LA 2 MG Capsule PO SCH (08:22)
[2018-01-18] MEDS: Divalproex 500 MG DR Tablet PO SCH ×2 (08:22→13:47)
[2018-01-18] MEDS: Pantoprazole Sodium 20 MG DR Tablet PO SCH (08:22)
[2018-01-18] MEDS: Docusate Sodium 100 MG Capsule PO SCH (08:23)
[2018-01-18] MEDS: Polyethylene Glycol 3350 17 GM Packet PO SCH (08:24)
[2018-01-18 09:00] LABS: Baso % (Auto) 0.4 % (0.0-2.0); Eos # (Auto) 0.1 th/mm3 (0.0-0.4); Hematocrit 44.1 % (39.0-51.0); Hemoglobin 15.2 gm/dL (13.0-17.0); Lymph # (Auto) 1.5 th/mm3 (1.0-4.8); Lymph % (Auto) 26.6 % (9.0-44.0); Mean Corpuscular HGB Conc 34.5 % (32.0-36.0); Mean Corpuscular Hemoglobin 33.6 pg (27.0-34.0); Mean Corpuscular Volume 97.5 fL (80.0-100.0); Mean Platelet Volume 8.5 fL (7.0-11.0); Mono # (Auto) 0.4 th/mm3 (0.0-0.9); Mono % (Auto) 7.5 % (0.0-8.0); Neut # (Auto) 3.7 th/mm3 (1.8-7.7); Neut % (Auto) 64.5 % (16.0-70.0); Platelet Count 135 th/mm3 (150-450); Red Blood Count 4.52 mil/mm3 (4.50-5.90); Red Cell Distribution Width 14.1 % (11.6-17.2); White Blood Count 5.7 th/mm3 (4.0-11.0)
[2018-01-18 09:26] LABS: Anion Gap 10 meq/L (5-15); Blood Urea Nitrogen 21 mg/dL (7-18); Calcium 8.7 mg/dL (8.5-10.1); Carbon Dioxide 26.2 meq/L (21.0-32.0); Chloride 104 meq/L (98-107); Cholesterol 132 mg/dL (120-200); Glomerular Filtration Rate Greater Than 89 mL/min (>89); Glucose,Random 156 mg/dL (74-106); Potassium 3.9 meq/L (3.5-5.1); Sodium 140 meq/L (136-145)
[2018-01-18 09:36] LABS: Chol/HDL Ratio 2.57 Ratio; HDL Cholesterol 51.3 mg/dL (40.0-60.0); LDL Cholesterol,Calculated 59 mg/dL (0-99); Triglycerides 109 mg/dL (42-150)
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
[2018-01-18 17:03] LABS: Hemoglobin A1c 5.5 % (4.3-6.0)
== END 2018-01-18 15:15 ==
LOC: H270 18:22
PROVIDERS: ADMIT Psychiatry & Neurology Psychiatry; ATTEND Psychiatry & Neurology Psychiatry

== ENCOUNTER 2018-01-21 16:25 | Inpatient (IN) ==
[2018-01-21] MEDS ORDERED: Haloperidol Inj 5 MG/ML Ampul ONE (17:41)
[2018-01-21] MEDS ORDERED: Haloperidol Inj 5 MG/ML Ampul IM ONE (17:43)
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
[2018-01-21 18:43] LABS: Baso % (Auto) 0.5 % (0.0-2.0); Eos % (Auto) 0.4 % (0.0-4.0); Hematocrit 38.4 % (39.0-51.0); Hemoglobin 13.2 gm/dL (13.0-17.0); Lymph # (Auto) 1.4 th/mm3 (1.0-4.8); Lymph % (Auto) 25.4 % (9.0-44.0); Mean Corpuscular HGB Conc 34.5 % (32.0-36.0); Mean Corpuscular Hemoglobin 33.2 pg (27.0-34.0); Mean Corpuscular Volume 96.1 fL (80.0-100.0); Mean Platelet Volume 9.2 fL (7.0-11.0); Mono # (Auto) 0.6 th/mm3 (0.0-0.9); Mono % (Auto) 11.7 % (0.0-8.0); Neut # (Auto) 3.5 th/mm3 (1.8-7.7); Platelet Count 166 th/mm3 (150-450); Red Blood Count 3.99 mil/mm3 (4.50-5.90); Red Cell Distribution Width 14.5 % (11.6-17.2); White Blood Count 5.6 th/mm3 (4.0-11.0)
[2018-01-21 19:07] LABS: Albumin 3.5 g/dL (3.4-5.0); Anion Gap 9 meq/L (5-15); Aspartate Aminotransferase 45 U/L (15-37); Blood Urea Nitrogen 21 mg/dL (7-18); Chloride 111 meq/L (98-107); Glomerular Filtration Rate Greater Than 89 mL/min (>89); Glucose,Random 104 mg/dL (74-106); Potassium 4.2 meq/L (3.5-5.1); Sodium 145 meq/L (136-145)
[2018-01-21 19:08] LABS: Alanine Aminotransferase 32 U/L (12-78)
[2018-01-21 19:19] LABS: Alkaline Phosphatase 60 U/L (45-117); Total Protein 7.1 g/dL (6.4-8.2)
[2018-01-22 01:00] LABS: Amphetamine Screen,Urine Neg (Neg); Barbiturate Screen,Urine Neg (Neg); Cannabinoid Screen,Urine Neg (Neg); Cocaine Screen,Urine Neg (Neg)
[2018-01-22 01:03] LABS: Opiate Screen,Urine Neg (Neg)
[2018-01-22] MEDS: QUEtiapine 100 MG Tablet PO SCH (10:37)
[2018-01-22] MEDS: Divalproex 500 MG DR Tablet PO SCH ×3 (10:37→18:50)
[2018-01-23] MEDS: QUEtiapine 100 MG Tablet PO SCH (09:21)
[2018-01-23] MEDS: Divalproex 500 MG DR Tablet PO SCH ×2 (09:21→18:21)
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
[2018-01-23] MEDS ORDERED: Aluminum/Magnesium/Simethacone Susp 30 ML UDC PO PRN (15:20)
[2018-01-23] MEDS ORDERED: Bisacodyl 10 MG Supp RECTAL PRN (15:20)
[2018-01-23 17:21] VITALS: BP 144/84; PULSE 92; RESP 18; TEMP 98.3; O2SAT 99
[2018-01-23] MEDS: Senna/Docusate Sodium 8.6/50 MG Tablet PO SCH (20:38)
[2018-01-24] MEDS: Divalproex 500 MG DR Tablet PO SCH ×2 (08:29→12:33)
[2018-01-24] MEDS: Senna/Docusate Sodium 8.6/50 MG Tablet PO SCH (08:30)
[2018-01-24 08:37] LABS: Anion Gap 9 meq/L (5-15); Blood Urea Nitrogen 15 mg/dL (7-18); Carbon Dioxide 28.2 meq/L (21.0-32.0); Chloride 108 meq/L (98-107); Cholesterol 138 mg/dL (120-200); Glomerular Filtration Rate Greater Than 89 mL/min (>89); Glucose,Random 93 mg/dL (74-106); Potassium 4.1 meq/L (3.5-5.1); Sodium 145 meq/L (136-145)
[2018-01-24 08:40] LABS: Chol/HDL Ratio 3.38 Ratio; HDL Cholesterol 40.8 mg/dL (40.0-60.0); LDL Cholesterol,Calculated 68 mg/dL (0-99); Triglycerides 144 mg/dL (42-150); Valproic Acid 63 mcg/mL (50-100)
--- NOTE | 2018-01-24 09:58 | P.HPPSY ---
Provisional Diagnosis Admission Date: January 23, 2018 15:40 [place] I.: 1. 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 Express and informed consent means consent voluntarily given in writing, by a competent person, after sufficient explanation and disclosure of the subject matter involved to enable the person to make a knowing and willful decision without any element of force, fraud, deceit, duress, or other form of constraint or coercion. This person is 18 years of age or older, is not now known to be incompetent to consent to treatment with a guardian advocate, and does not have a health care surrogate or proxy currently making medical treatment decisions. I have found this person to be one of the following: [] Competent to provide express and informed consent, as defined above, for voluntary admission to this facility and is competent to provide express and informed consent for treatment. He/she has the consistent capacity to make well reasoned, willful, and knowing decisions concerning his or her medical or mental health treatment. The person fully and consistently understands the purpose of the admission for examination/placement and is fully capable of personally exercising all rights assured [place] [X] Incompetent to provide express and informed consent to voluntary admission, and this is incompetent to provide express and informed consent to treatment. The person must be transferred to involuntary status and a petition for a guardian advocate filed with the Circuit Court. [] Refusing to provide express and informed consent to voluntary admission but is competent to provide express and informed consent for treatment. The person must be discharged or transferred to involuntary status. Form shall be completed within 24 hours of a person's arrival at the receiving facility and filed in the clinical record of each person: 1. Admitted on a voluntary basis 2. Permitted to provide express and informed consent to his/her own treatment 3. Allowed to transfer from involuntary to voluntary status 4. Prior to permitting a person to consent to his or her own treatment after having been previously found incompetent to consent to treatment. History of Present Illness Capacity: Lacks capacity Chief Complaint: Gleason Act History of Present Illness: Mr. Purdy is 47-year-old male with a history of mental illness variously diagnosed as schizophrenia, organic affective disorder, mental retardation, etc. along with a more recent history of TBI who presents under a Gleason act by [place] [employer] alleging that the patient "has been exhibiting violent and aggressive behavior towards the staff" at his facility. Patient was evaluated by the psychiatric nurse practitioner in the emergency department who admitted the patient to the inpatient psychiatric unit. Reviewing the electronic medical record, I note that the patient was most recently admitted at the end of December under Dr. Mcgarry to the inpatient psychiatric unit. Patient seen and examined with nurse, Chase, and counselor, Uri. Chart reviewed. In particular, I have reviewed the "consumer profile" that accompanies the patient from his facility and also the MAR from his facility. It appears that the patient's Seroquel is in the process of being tapered and discontinued, and his Geodon was tapered from 80 mg twice a day to 80 mg every evening with food. Case discussed with nurse, who reports that the patient has been no behavioral problem this morning, although he is somewhat unpredictable. Case discussed with counselor. Counselor has reached out to patient's family and also to his facility. Both family and facility reportedly wish to have patient returned to facility today per counselor. Facility is requesting a medication change in advance of patient's return. According to collateral obtained by counselor, antipsychotics were in the process of being tapered as patient was excessively sedated on both Seroquel and Geodon together. On my examination today, patient presents as quite childlike. He is calm for the majority of our interview, although he does have a brief tantrum towards the end , banging his hands on the table; he calms quickly and is easily redirected. He has obvious cognitive deficits. He says that he was brought into the hospital because "the counselor [at facility] called the drilling inspector on me." He says that the counselor told the police that he was not welcome back at the facility , although this is not the case. Presently, the patient denies any suicidal or homicidal ideation, intent or plan. He does not describe any audiovisual hallucinations, nor can I appreciate any delusional material. I can elicit no depressive or hypomanic/manic symptoms. Psychiatric interview is somewhat limited because of the patient's cognitive impairment, and I am unable to obtain any meaningful past psychiatric, family, chemical dependency or social history from the patient for this reason as well. He has no acute physical complaints. I did endeavor to reach out to the patient's outpatient psychiatrist, Dr. Alfredo Mckay at the number listed in paperwork from facility. I left Dr. Mckay a voicemail with my callback number. - Inpatient Certification Plans for Post Hospital Care: jail Review of Systems All other systems reviewed negative except as stated in HPI (Limitation: Poor historian) [facility] - History History Provided By: Patient, Medical Record - Medical History Medical History: Medical History (Last Updated 01/21/18 @ 16:35 by Beth Montoya) Cerebral palsy Mental retardation Neuroleptic-induced acute akathisia Organic brain syndrome Mood disorder Schizophrenia Seizure - Tobacco History Second Hand Smoke Exposure: No Tobacco Use In Past 30 Days: No Smoking Status: Former smoker Tobacco Type: Cigarettes - Alcohol History How Often Do You Have a Drink Containing Alcohol: Never - Substance Use History Substance History: No History of Abuse - Travel History Recent Travel in the [facility] Within the Last 8 Weeks: No Recent Travel Out of the Country Within the Last 8 Weeks: No - Immunization History Tetanus Immunization: Unable to Assess Hx Influenza Vaccine This Season: Unable to Assess Quality Measures - Psychiatric History Psychological trauma history: None reported. - Patient Strengths Patient's strengths (minimum of 2): Lives in structured environment on an outpatient basis. Retains verbal fluency. Medications and Allergies Active Medications: Active Medications Al Hydrox/Mg Hydrox/Simethicone (Mag-Al Plus Susp Liq) 30 ml PO Q6H PRN PRN Reason: DYSPEPSIA Al Hydroxide/Mg Hydroxide (Milk Of Magnesia Liq) 30 ml PO Q12H PRN PRN Reason: Mild Constipation Bisacodyl (Dulcolax Supp) 10 mg RECTAL DAILY PRN PRN Reason: SEVERE CONSITIPATION Divalproex Sodium (Depakote Dr) 500 mg PO TID [facility] Last Admin: 01/24/18 08:29 Dose: 500 mg Lactulose (Lactulose Liq) 30 ml PO DAILY PRN PRN Reason: SEVERE CONSITIPATION Quetiapine Fumarate (Seroquel) 300 mg PO BID [facility] Last Admin: 01/24/18 08:30 Dose: 300 mg Senna/Docusate Sodium (Doreen-Colace) 1 tab PO BID [facility] Last Admin: 01/24/18 08:30 Dose: 1 tab Sennosides (Senokot) 17.2 mg PO Q12H PRN PRN Reason: Moderate Constipation Ziprasidone (Geodon) 80 mg PO [facility] Last Admin: 01/23/18 20:38 Dose: 80 mg Allergies Allergy/AdvReac Type Severity Reaction Status Date / Time No Known Allergies Allergy Unverified 01/15/18 02:12 Home Medications Medication Instructions Recorded Confirmed Type atorvastatin 20 mg PO DAILY 01/15/18 01/22/18 History docusate sodium [Colace] 100 mg PO DAILY 01/15/18 01/22/18 History mirabegron [Myrbetriq] 25 mg PO DAILY 01/15/18 01/22/18 History omeprazole 20 mg PO DAILY 01/15/18 01/22/18 History polyethylene glycol 3350 17 g PO DAILY 01/15/18 01/22/18 History tamsulosin 0.4 mg PO DAILY 01/15/18 01/22/18 History divalproex [Depakote] 500 mg PO TID 01/21/18 01/21/18 History ergocalciferol (vitamin D2) 50,000 unit PO QWEEK 01/22/18 01/22/18 History [Vitamin D2] levothyroxine 50 mcg PO DAILY 01/22/18 01/22/18 History quetiapine [Seroquel] 100 mg PO DAILY 01/22/18 01/22/18 History Results - Labs CBC & Chem 7: 01/21/18 17:08 01/24/18 08:06 Labs: Laboratory Results - last 24 hr 01/24/18 08:06 Sodium 145 Potassium 4.1 Chloride 108 H Carbon Dioxide 28.2 Anion Gap 9 BUN 15 Creatinine 0.61 Estimated GFR Greater than 89 Random Glucose 93 Calcium 9.0 Triglycerides 144 Cholesterol 138 LDL Cholesterol, Calc 68 HDL Cholesterol 40.8 Cholesterol/HDL Ratio 3.38 Valproic Acid 63 Labs reviewed. CBC unremarkable. BMP unremarkable. Depakote level within the therapeutic range. Hemoglobin A1c is pending. Exam Vital signs: Vital Signs 01/23/18 14:05 01/23/18 17:20 Temperature 97.3 F L 98.3 F Pulse Rate 89 92 H Respiratory Rate 20 18 Blood Pressure 135/83 144/84 H Pulse Oximetry 96 99 Intake & Output 01/23/18 01/24/18 01/24/18 18:59 06:59 18:59 Weight 86 kg Other: Weight On Admission 86 kg Narrative: Physical examination completed by ED provider. On my examination today, the patient appears to be in no acute physical distress. No motor abnormalities noted. Dysconjugate gaze noted. No ictal activity noted. Labs and vital signs reviewed. EKG from 01/15/18 was read as sinus rhythm with QTc 414ms, not prolonged. Mental Status Examination Appearance: Appropriate Consciousness: Alert Orientation: Person Motor Activity: Normal gait Speech: Hesitant Language: Other (Inadequate) Fund of Knowledge: Poor Attention and Concentration: Easily distracted Memory: Immediate (intact) Mood: Other (Calm) Affect: Other (Childlike) Thought Process & Associations: Other ([place]) Thought Content: Appropriate Hallucination Type: None Delusion Type: None Suicidal Ideation: No Suicidal Plan: No Suicidal Intention: No Homicidal Ideation: No Homicidal Plan: No Homicidal Intention: No Insight: Poor Judgment: Poor Mental Status Exam Remarks: Insight and judgment are chronically poor. Assessment and Plan - Assessment (1) Major neurocognitive disorder, due to another medical condition, with behavioral disturbance, mild Code(s): F02.81 - Dementia in other diseases classified elsewhere with behavioral disturbance Status: Acute (2) TBI (traumatic brain injury) Code(s): S06.9X9A - Unspecified intracranial injury with loss of consciousness of unspecified duration, initial encounter Status: Chronic - Plan Plan: 47-year-old male with psychiatric history as detailed above who presents under Gleason act. Presenting behavioral disturbance seems to be mediated primarily by patient's history of TBI (perhaps overlying pre-existing MR). There is no evidence of unstable mood, anxiety or psychotic disorder in this patient at this time. Both patient's family and his facility reportedly wish to have the patient returned to facility today. Given the nature of the patient's illness, it seems unlikely that the patient would derive significant benefit from psychiatric hospitalization at this point. The patient does reportedly have some problematic behaviors and is chronically unpredictable in the setting of his TBI and perhaps underlying MR, but facility reportedly feels capable of managing these behaviors at this point, although they are requesting a medication adjustment. Antipsychotics were reportedly being tapered and discontinued as a consequence of excessive sedation with the combination of these medications, apparently with subsequent worsening of patient's behaviors. Consequently, it seems logical to titrate antipsychotics now enough to control behaviors without, it is hoped, excessively sedating the patient. In service of this goal, I will titrate the Geodon (as the less sedating of the patient's antipsychotics) back to the previous dose of 80 mg twice daily with meals and discontinue the more sedating Seroquel at this time with plans for further adjustments on an outpatient basis. Patient will be discharged back to facility today with psychiatric follow-up as arranged by the counselor. Patient is also to follow up with primary care. He did have some hyperammonemia and mild transaminitis on laboratory work drawn during recent admission, and so I have ordered follow-up ammonia and LFT levels on an outpatient basis. I have provided a prescription for the Geodon at the adjusted dose of 80 mg twice daily with meals and have discontinued the Seroquel with orders to continue other medications unchanged. This note serves also as my discharge summary. Justification for Continued Inpatient Stay: N/A.
[2018-01-24 15:29] LABS: Hemoglobin A1c 5.6 % (4.3-6.0)
== END 2018-01-24 15:15 ==
LOC: NEPJ 16:25 → NEDA 01-23 15:40 → H270 01-23 16:15
PROVIDERS: ADMIT Psychiatry & Neurology Psychiatry; ATTEND Psychiatry & Neurology Psychiatry

== ENCOUNTER 2018-01-26 17:32 | Inpatient (IN) ==
--- NOTE | 2018-01-26 18:58 | ED ---
HPI General Chief Complaint: Psychiatric Symptoms Stated Complaint: Psych Eval Time Seen by Provider: 01/26/18 18:40 Source: patient, RN notes reviewed and old records reviewed Mode of arrival: ambulatory Limitations: no limitations History of Present Illness HPI Narrative: 47 year old male presents to the emergency department under Gleason Act by local police. According to Gleason Act, the patient was being transported to a new jail when he became agitated and tried to jump out of a moving car 3 times. Patient has history of TBI and is very childlike in nature. He does not contribute much to his history and physical. Patient was recently discharged from the psychiatric unit 2 days ago. Moderate severity. He has history of schizoaffective and mood disorders. Duration: constant History of same: Yes Relieving factors: none Exacerbating factors: none Associated symptoms: denies other symptoms Treatments prior to arrival: placed on mental health hold Related Data Home Medications Medication Instructions Recorded Confirmed atorvastatin 20 mg PO DAILY 01/15/18 01/27/18 docusate sodium [Colace] 100 mg PO DAILY 01/15/18 01/22/18 mirabegron [Myrbetriq] 25 mg PO DAILY 01/15/18 01/27/18 omeprazole 20 mg PO DAILY 01/15/18 01/22/18 polyethylene glycol 3350 17 g PO DAILY 01/15/18 01/27/18 tamsulosin 0.4 mg PO DAILY 01/15/18 01/27/18 ergocalciferol (vitamin D2) 50,000 unit PO QWEEK 01/22/18 01/27/18 [Vitamin D2] levothyroxine 50 mcg PO DAILY 01/22/18 01/22/18 Previous Rx's Medication Instructions Recorded acetaminophen 650 mg PO Q4H PRN tab 01/16/18 divalproex 500 mg PO TID #90 tab 01/18/18 ziprasidone HCl [Geodon] 80 mg PO BIDPC 15 Days cap 01/24/18 Allergies Allergy/AdvReac Type Severity Reaction Status Date / Time No Known Allergies Allergy Unverified 01/15/18 02:12 Review of Systems ROS: all other systems reviewed are negative [facility] Medical History Medical History Cerebral palsy (Acute) Mental retardation (Acute) Mood disorder (Acute) 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) Schizophrenia (Acute) Seizure (Acute) Social History Social History Substance History: No History of Abuse Second Hand Smoke Exposure: No Smoking Status: Never smoker Tobacco Type: Cigarettes How Often Do You Have a Drink Containing Alcohol: Unable to Obtain Recent Travel in [facility] within the Last 8 Weeks: No Recent Out of Country Travel within the Last 8 Weeks: No Exam Narrative Exam Narrative: GENERAL: Well-nourished, well-developed male patient, afebrile. SKIN: Warm and dry. HEAD: Normocephalic. Atraumatic. EYES: No scleral icterus. No injection or drainage. P NECK: Supple, trachea midline. No JVD or lymphadenopathy. CARDIOVASCULAR: Regular rate and rhythm without murmurs, gallops, or rubs. RESPIRATORY: Breath sounds equal bilaterally. No accessory muscle use. Lungs sounds clear to auscultation throughout. GASTROINTESTINAL: Abdomen soft, non-tender, nondistended. MUSCULOSKELETAL: No cyanosis, or edema. BACK: Nontender without obvious deformity. No CVA tenderness. PSYCHIATRIC: Patient appears very childlike in nature. Course Initial Documented Vital Signs Temperature 97.9 F 01/26/18 18:50 Pulse Rate 119 H 01/26/18 18:50 Respiratory Rate 18 01/26/18 18:50 Blood Pressure 121/62 01/26/18 18:50 Pulse Oximetry 96 01/26/18 18:50 Last Documented Vital Signs Temperature 97.3 F L 01/28/18 06:00 Pulse Rate 81 01/28/18 06:00 Respiratory Rate 18 01/28/18 06:00 Blood Pressure 126/83 01/28/18 06:00 Pulse Oximetry 100 01/28/18 06:00 Medical Decision Making [facility] Narrative Medical decision making narrative: 47 year old male presents to the emergency department under [place] Act for psychiatric evaluation. CBC, CMP, TSH, alcohol level, UDS, depakote level, ammonia level are ordered and pending. CBC shows no acute abnormality. CMP shows no acute abnormality. TSH is 1.820. Alcohol level is less than 2. UDS is negative. Depakote level is 62. Ammonia level is 69. This appears stable for patient. He is given lactulose 30 ml PO. Patient is medically cleared for psychiatric screening and disposition. Medical Screen Exam Complete: Yes Emergency Medical Condition: Yes Differential Diagnosis Differential Diagnosis: schizoaffective d/o vs. depakote toxicity vs. bipolar disorder vs. h/o of TBI Medical Records Medical records reviewed: Yes I reviewed the patient's medical records. Patient was discharged 2 days ago, but had elevated depakote level and ammonia level on admission. Lab Data Result diagrams: 01/26/18 17:55 01/26/18 17:55 Lab Results 01/26/18 01/26/18 01/26/18 Range/Units 17:55 17:55 17:55 WBC 6.7 (4.0-11.0) th/mm3 RBC 4.33 L (4.50-5.90) mil/mm3 Hgb 14.7 (13.0-17.0) gm/dL Hct 41.6 (39.0-51.0) % MCV 96.1 (80.0-100.0) fL MCH 33.9 (27.0-34.0) pg MCHC 35.3 (32.0-36.0) % RDW 13.7 (11.6-17.2) % Plt Count 186 (150-450) th/mm3 MPV 8.5 (7.0-11.0) fL Neut % (Auto) 65.2 (16.0-70.0) % Lymph % (Auto) 26.9 (9.0-44.0) % [place] % (Auto) 7.1 (0.0-8.0) % Eos % (Auto) 0.3 (0.0-4.0) % Baso % (Auto) 0.5 (0.0-2.0) % Neut # (Auto) 4.4 (1.8-7.7) th/mm3 Lymph # (Auto) 1.8 (1.0-4.8) th/mm3 [place] # (Auto) 0.5 (0.0-0.9) th/mm3 Eos # (Auto) 0.0 (0.0-0.4) th/mm3 Baso # (Auto) 0.0 (0.0-0.2) th/mm3 WBC Differential . Differential Comment Auto diff final Sodium 145 (136-145) meq/L Potassium 4.5 (3.5-5.1) meq/L Chloride 108 H (98-107) meq/L Carbon Dioxide 25.3 (21.0-32.0) meq/L Anion Gap 12 (5-15) meq/L BUN 22 H (7-18) mg/dL Creatinine 0.83 (0.60-1.30) mg/dL Estimated GFR Greater than 89 (>89) mL/min Random Glucose 99 (74-106) mg/dL Calcium 9.4 (8.5-10.1) mg/dL Total Bilirubin 0.6 (0.2-1.0) mg/dL AST 41 H (15-37) U/L ALT 37 (12-78) U/L Alkaline Phosphatase 61 (45-117) U/L Ammonia (11-32) mcmol/L Total Protein 7.7 D (6.4-8.2) g/dL Albumin 3.9 (3.4-5.0) g/dL TSH 1.820 (0.358-3.740) uIU/mL Urine Opiates Screen (Neg) Ur Barbiturates Screen (Neg) Valproic Acid 62 (50-100) mcg/mL Ur Amphetamines Screen (Neg) U Benzodiazepines Scrn (Neg) Urine Cocaine Screen (Neg) U Cannabinoids Screen (Neg) Serum Alcohol Less than 2 (0-5) mg/dL 01/26/18 01/26/18 Range/Units 18:00 19:35 WBC (4.0-11.0) th/mm3 RBC (4.50-5.90) mil/mm3 Hgb (13.0-17.0) gm/dL Hct (39.0-51.0) % MCV (80.0-100.0) fL MCH (27.0-34.0) pg MCHC (32.0-36.0) % RDW (11.6-17.2) % Plt Count (150-450) th/mm3 MPV (7.0-11.0) fL Neut % (Auto) (16.0-70.0) % Lymph % (Auto) (9.0-44.0) % [place] % (Auto) (0.0-8.0) % Eos % (Auto) (0.0-4.0) % Baso % (Auto) (0.0-2.0) % Neut # (Auto) (1.8-7.7) th/mm3 Lymph # (Auto) (1.0-4.8) th/mm3 [place] # (Auto) (0.0-0.9) th/mm3 Eos # (Auto) (0.0-0.4) th/mm3 Baso # (Auto) (0.0-0.2) th/mm3 WBC Differential Differential Comment Sodium (136-145) meq/L Potassium (3.5-5.1) meq/L Chloride (98-107) meq/L Carbon Dioxide (21.0-32.0) meq/L Anion Gap (5-15) meq/L BUN (7-18) mg/dL Creatinine (0.60-1.30) mg/dL Estimated GFR (>89) mL/min Random Glucose (74-106) mg/dL Calcium (8.5-10.1) mg/dL Total Bilirubin (0.2-1.0) mg/dL AST (15-37) U/L ALT (12-78) U/L Alkaline Phosphatase (45-117) U/L Ammonia 69 H (11-32) mcmol/L Total Protein (6.4-8.2) g/dL Albumin (3.4-5.0) g/dL TSH (0.358-3.740) uIU/mL Urine Opiates Screen Neg (Neg) Ur Barbiturates Screen Neg (Neg) Valproic Acid (50-100) mcg/mL Ur Amphetamines Screen Neg (Neg) U Benzodiazepines Scrn Neg (Neg) Urine Cocaine Screen Neg (Neg) U Cannabinoids Screen Neg (Neg) Serum Alcohol (0-5) mg/dL Discharge Plan Discharge Disposition Patient Disposition: 30 Still Patient Discharge Condition Condition: Stable Discharge Details Diagnosis: Medical clearance for psychiatric admission Physicians Team ED Provider: Castro Whyte ED Midlevel Provider: Oumou Gonzalez Primary Care Provider: Primary Care Tiffaniei,Louisa Attending Provider: Kris Villalpando Other Providers: Surinder Mcgarry Discharge Interventions Interventions: ED Discharge Assessment Last Done: 01/27/18 10:57 Vital Signs Last Done: 01/27/18 05:04 Status ED Status: Left Department Discharge Information Discharge Date/Time: 01/27/18 10:05
[2018-01-26 19:25] LABS: Baso % (Auto) 0.5 % (0.0-2.0); Eos % (Auto) 0.3 % (0.0-4.0); Hematocrit 41.6 % (39.0-51.0); Hemoglobin 14.7 gm/dL (13.0-17.0); Lymph # (Auto) 1.8 th/mm3 (1.0-4.8); Lymph % (Auto) 26.9 % (9.0-44.0); Mean Corpuscular HGB Conc 35.3 % (32.0-36.0); Mean Corpuscular Hemoglobin 33.9 pg (27.0-34.0); Mean Corpuscular Volume 96.1 fL (80.0-100.0); Mean Platelet Volume 8.5 fL (7.0-11.0); Mono # (Auto) 0.5 th/mm3 (0.0-0.9); Mono % (Auto) 7.1 % (0.0-8.0); Neut # (Auto) 4.4 th/mm3 (1.8-7.7); Neut % (Auto) 65.2 % (16.0-70.0); Platelet Count 186 th/mm3 (150-450); Red Blood Count 4.33 mil/mm3 (4.50-5.90); Red Cell Distribution Width 13.7 % (11.6-17.2); White Blood Count 6.7 th/mm3 (4.0-11.0)
[2018-01-26 19:33] LABS: Amphetamine Screen,Urine Neg (Neg); Barbiturate Screen,Urine Neg (Neg); Cannabinoid Screen,Urine Neg (Neg); Cocaine Screen,Urine Neg (Neg)
[2018-01-26 19:45] LABS: Alanine Aminotransferase 37 U/L (12-78)
[2018-01-26 19:54] LABS: Alkaline Phosphatase 61 U/L (45-117); Total Protein 7.7 g/dL (6.4-8.2)
[2018-01-26 20:21] LABS: Opiate Screen,Urine Neg (Neg)
[2018-01-26 20:21] LABS: Anion Gap 12 meq/L (5-15)
[2018-01-26 20:22] LABS: Albumin 3.9 g/dL (3.4-5.0); Aspartate Aminotransferase 41 U/L (15-37); Blood Urea Nitrogen 22 mg/dL (7-18); Calcium 9.4 mg/dL (8.5-10.1); Carbon Dioxide 25.3 meq/L (21.0-32.0); Chloride 108 meq/L (98-107); Glomerular Filtration Rate Greater Than 89 mL/min (>89); Glucose,Random 99 mg/dL (74-106); Potassium 4.5 meq/L (3.5-5.1); Sodium 145 meq/L (136-145)
[2018-01-27] MEDS ORDERED: Haloperidol Inj 5 MG/ML Ampul IM ONE (07:38)
[2018-01-27] MEDS ORDERED: Haloperidol Inj 5 MG/ML Ampul IM STA ×2 (07:45→18:15)
[2018-01-27] MEDS ORDERED: Bisacodyl 10 MG Supp RECTAL PRN (07:47)
[2018-01-27] MEDS ORDERED: Aluminum/Magnesium/Simethacone Susp 30 ML UDC PO PRN (07:47)
[2018-01-27] MEDS ORDERED: Acetaminophen 325 MG Tablet PO PRN (07:48)
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
[2018-01-27] MEDS ORDERED: Haloperidol Inj 5 MG/ML Ampul ONE (17:39)
[2018-01-28] MEDS ORDERED: Haloperidol Inj 5 MG/ML Ampul IM STA ×2 (08:23→15:36)
[2018-01-28] MEDS: Senna/Docusate Sodium 8.6/50 MG Tablet PO SCH (09:13)
[2018-01-28] MEDS: Divalproex 500 MG DR Tablet PO SCH ×3 (09:15→19:07)
[2018-01-28] MEDS: Levothyroxine 50 MCG Tablet PO SCH (09:18)
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
[2018-01-29] MEDS: Senna/Docusate Sodium 8.6/50 MG Tablet PO SCH (08:17)
[2018-01-29] MEDS: Levothyroxine 50 MCG Tablet PO SCH (08:17)
[2018-01-29] MEDS: Divalproex 500 MG DR Tablet PO SCH ×3 (08:17→17:10)
--- NOTE | 2018-01-29 12:30 | ECG ---
Date Performed: 01/27/2018 Time Performed: 18:56:03 PTAGE: 47 years EKG: Sinus rhythm NORMAL ECG PREVIOUS TRACING : 01/15/2018 03.47 Since the previous tracing, no significant change noted DOCTOR: Kris Hart Interpretating Date/Time 01/29/2018 12:30:03
[2018-01-29 13:40] LABS: Anion Gap 7 meq/L (5-15); Blood Urea Nitrogen 23 mg/dL (7-18); Calcium 8.8 mg/dL (8.5-10.1); Carbon Dioxide 31.8 meq/L (21.0-32.0); Chloride 102 meq/L (98-107); Cholesterol 163 mg/dL (120-200); Glomerular Filtration Rate Greater Than 89 mL/min (>89); Glucose,Random 84 mg/dL (74-106); Potassium 3.8 meq/L (3.5-5.1); Sodium 141 meq/L (136-145); Triglycerides 253 mg/dL (42-150)
[2018-01-29 13:42] LABS: HDL Cholesterol 41.7 mg/dL (40.0-60.0); LDL Cholesterol,Calculated 71 mg/dL (0-99)
--- NOTE | 2018-01-29 16:10 | P.PNPSY ---
Subjective Remarks: Reviewed electronic medical records and discussed case with staff. Follow-up was conducted in the dayroom with [facility]. Patient is sitting at the table watching television. Staff share that he has been cooperative today with no behavioral concerns. When asked question he has a delay in response. Hx of cerebral palsy and head trauma in past. Sleeping and eating well. Review of Systems All other systems reviewed negative except as stated in HPI Comments: past hx of head trauma Mental Status Examination Appearance: Disheveled Consciousness: Alert Orientation: Person Motor Activity: Abnormal gait Speech: Hesitant Language: Other (Limited language skills) Fund of Knowledge: Inadequate Attention and Concentration: Easily distracted Memory: Impaired Mood: Other (Presently calm) Affect: Other (Childlike) Thought Process & Associations: Tangential Thought Content: Bizarre thinking Hallucination Type: None Delusion Type: None Suicidal Ideation: No Suicidal Plan: No Suicidal Intention: No Homicidal Ideation: No Homicidal Plan: No Homicidal Intention: No Insight: Poor Judgment: Poor Assessment and Plan - Assessment (1) Dementia in other diseases classified elsewhere with behavioral disturbance Code(s): F02.81 - Dementia in other diseases classified elsewhere with behavioral disturbance Status: Acute - Plan Plan: Patient has been cooperative today, no behavioral concerns. Justification for Continued Inpatient Stay: Moving patient to a less restrictive environment may result in his decompensation.
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
[2018-01-30] MEDS: Senna/Docusate Sodium 8.6/50 MG Tablet PO SCH (09:14)
[2018-01-30] MEDS: Divalproex 500 MG DR Tablet PO SCH ×4 (09:15→17:42)
[2018-01-30] MEDS: LORazepam 1 MG Tablet PO PRN (09:17)
[2018-01-30 15:50] LABS: Hemoglobin A1c 5.3 % (4.3-6.0)
[2018-01-31] MEDS: Levothyroxine 50 MCG Tablet PO SCH (05:30)
[2018-01-31] MEDS: LORazepam 1 MG Tablet PO PRN (08:10)
[2018-01-31] MEDS: Divalproex 500 MG DR Tablet PO SCH ×3 (08:12→18:10)
--- NOTE | 2018-01-31 10:45 | P.PNPSY ---
Subjective Remarks: Patient seen and examined with counselor and nurse. Chart reviewed. Case discussed with nursing staff who reports patient's intermittent outbursts are perhaps decreasing in severity and frequency. Case discussed with counselor. On my examination today, the patient is somewhat more interactive. He says " may be I stay 1 more night." He denies any audiovisual hallucinations. No SI or HI. Denies side effects from medications. No physical complaints. Resting tremor has been decreased but not extinguished with Cogentin. Vital Signs Temp Pulse Resp BP Pulse Ox 01/30/18 15:40 98.1 F 99 H 18 127/85 98 Laboratory Results - last 24 hr 01/29/18 12:55 Hemoglobin A1c 5.3 Labs reviewed. Review of Systems unobtainable due to mental condition Mental Status Examination Appearance: Disheveled Consciousness: Alert Orientation: Person Motor Activity: Other (Resting hand tremor reduced. No other motor abnormalities noted.) Speech: Hesitant Language: Other (Limited language skills) Fund of Knowledge: Inadequate Attention and Concentration: Easily distracted Memory: Impaired Mood: Other (Presently calm) Affect: Labile (Decreased, childlike still.) Thought Process & Associations: Tangential Thought Content: Bizarre thinking Hallucination Type: None Delusion Type: None Suicidal Ideation: No Homicidal Ideation: No Insight: Poor Judgment: Poor Assessment and Plan - Assessment (1) Major neurocognitive disorder, due to another medical condition, with behavioral disturbance, mild Code(s): F02.81 - Dementia in other diseases classified elsewhere with behavioral disturbance Status: Acute (2) TBI (traumatic brain injury) Code(s): S06.9X9A - Unspecified intracranial injury with loss of consciousness of unspecified duration, initial encounter Status: Chronic - Plan Plan: Titrate Cogentin to 1 mg twice daily to target possible motor side effects from antipsychotic treatment. The patient does seem to be improving with increased dose of Geodon. To consider further titrating the dose to 120 mg twice daily, perhaps tomorrow if needed. Continue to monitor on the inpatient unit. Continue other medications and care as ordered. Justification for Continued Inpatient Stay: Risk for decompensation in less restrictive environment. Medication changes. Discharge Planning: To be determined. Counselor will check to see if patient may return to existing facility or if he requires new placement. Request Healthcare Surrogate/Guardian Advocate?: Yes
--- NOTE | 2018-01-31 14:28 | P.TTN ---
- Patient Problems Problems: 1. Discharge planning 2. Medication compliance 3. Knowledge deficit 4. Lack of coping skills - Progress Toward Goals Provider Present: Dr. Pepe Villalpando ([facility].) Psychiatric Counselors Present: Uri Zhang Jr., [facility] (Pt. has no insight, unstable, psychotic, internally stimulated, needs more time.) Group Spec/RT/OT/PATEL Present: AMANDA Boswell (Pt. attends some groups. Pt. is limited. Pt.is unable to attend most groups.) - Documentation Teaching Recipient: Patient
[2018-02-01] MEDS: Levothyroxine 50 MCG Tablet PO SCH (05:43)
[2018-02-01] MEDS: Divalproex 500 MG DR Tablet PO SCH ×3 (08:12→18:26)
--- NOTE | 2018-02-01 11:24 | P.PNPSY ---
Subjective Remarks: Patient seen and examined with nurse. Chart reviewed. Case discussed with nursing staff. Patient is reportedly having a good morning so far with no evidence of behavioral disturbance. On my examination today, the patient remained somewhat parkinsonian. He has a resting tremor and shuffling gait. He is drooling slightly. He is awake and alert with no evidence of excessive sedation. He is calm and pleasant on exam. Cognition remains impaired as before. No psychotic material no SI or HI. Hoping to go back to facility soon. No reported side effects from medications. No physical complaints. In particular no reported complaints of constipation or urinary retention, nor has this reportedly been an issue per nursing staff. Vital Signs Temp Pulse Resp BP Pulse Ox 02/01/18 06:12 97.5 F L 92 H 17 125/78 98 01/31/18 16:56 98.3 F 111 H 16 118/63 97 Labs reviewed. No new labs. Review of Systems All other systems reviewed negative except as stated in HPI Mental Status Examination Appearance: Disheveled Consciousness: Alert Orientation: Person Motor Activity: Other (Ongoing resting hand tremor and shuffling gait. No other motor abnormalities noted.) Speech: Hesitant Language: Other (Limited language skills) Fund of Knowledge: Inadequate Attention and Concentration: Easily distracted Memory: Impaired Mood: Other (Calm) Affect: Blunt Thought Process & Associations: Tangential Thought Content: Bizarre thinking Hallucination Type: None Delusion Type: None Suicidal Ideation: No Homicidal Ideation: No Insight: Poor Judgment: Poor Assessment and Plan - Assessment (1) Major neurocognitive disorder, due to another medical condition, with behavioral disturbance, mild Code(s): F02.81 - Dementia in other diseases classified elsewhere with behavioral disturbance Status: Acute (2) TBI (traumatic brain injury) Code(s): S06.9X9A - Unspecified intracranial injury with loss of consciousness of unspecified duration, initial encounter Status: Chronic - Plan Plan: Patient's behaviors seem much improved with adjustment in Geodon dosing and so I think it is worthwhile to adjust Cogentin to get ahead of the probable parkinsonian side effects from this medication that he is experiencing. I will titrate Cogentin to 1.5 mg twice daily. Continue Geodon and other psychotropic medications as ordered. Continue to monitor on the inpatient unit. Continue other medications and care as ordered. Justification for Continued Inpatient Stay: Medication changes. Discharge Planning: Possible discharge back to facility tomorrow, Request Healthcare Surrogate/Guardian Advocate?: Yes
[2018-02-02] MEDS: Levothyroxine 50 MCG Tablet PO SCH (05:24)
[2018-02-02] MEDS: Divalproex 500 MG DR Tablet PO SCH (08:59)
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
== END 2018-02-02 16:45 ==
LOC: NEPJ 17:32 → NEDA 01-27 07:47 → H270 01-27 10:05
PROVIDERS: ADMIT Psychiatry & Neurology Psychiatry; ATTEND Psychiatry & Neurology Psychiatry